=== PATIENT | female | born 1955 | race Caucasian/White ===

== ENCOUNTER 2023-04-09 11:00 | Outpatient (RCR) | payer MEDICARE, BC ==
[~2023-04-09 11:00] MED LIST: EVENITY (2210 MG/2.3 SQ; EXCEDRIN1 TAB PO
== END 2023-04-20 | disposition home or self-care (01) ==
LOC: COL.CR
DX: Z48.812 Encounter for surgical aftercare following surgery on the circulatory system (principal); Z95.2 Presence of prosthetic heart valve

== ENCOUNTER 2023-05-20 09:15 | Outpatient (RCR) | payer MEDICARE, BC | END 2023-05-21 | disposition home or self-care (01) | LOC: WSPT | DX: M54.2 Cervicalgia (principal); M54.9 Dorsalgia, unspecified; G89.29 Other chronic pain ==

== ENCOUNTER → 2023-05-21 | Outpatient (RCR) | payer MEDICARE, BC | END | disposition home or self-care (01) | LOC: COL.CR | DX: Z48.812 Encounter for surgical aftercare following surgery on the circulatory system (principal); Z95.2 Presence of prosthetic heart valve ==

== ENCOUNTER → 2023-06-05 | Outpatient (CLI) | payer SELFPAY | LOC: WSC 11:38 | DX: M54.2 Cervicalgia (principal); M54.9 Dorsalgia, unspecified; G89.29 Other chronic pain ==

== ENCOUNTER 2023-06-18 15:38 | Outpatient (RCR) | payer MEDICARE, BC | END 2023-06-19 | disposition home or self-care (01) | LOC: COL.CR | DX: Z48.812 Encounter for surgical aftercare following surgery on the circulatory system (principal); Z95.2 Presence of prosthetic heart valve ==

== ENCOUNTER → 2023-06-19 | Outpatient (CLI) | payer SELFPAY | LOC: WSC 09:22 | DX: M54.2 Cervicalgia (principal); M54.9 Dorsalgia, unspecified; G89.29 Other chronic pain ==

== ENCOUNTER → 2023-06-19 | Outpatient (RCR) | payer MEDICARE, BC | END | disposition home or self-care (01) | LOC: WSPT | DX: M54.2 Cervicalgia (principal); M54.9 Dorsalgia, unspecified; G89.29 Other chronic pain ==

== ENCOUNTER → 2023-06-26 | Outpatient (CLI) | payer SELFPAY | LOC: WSC 12:40 | DX: M54.2 Cervicalgia (principal); M54.9 Dorsalgia, unspecified; G89.29 Other chronic pain ==

== ENCOUNTER 2023-07-03 10:30 | Outpatient (RCR) | payer MEDICARE, BC | END 2023-07-20 | disposition home or self-care (01) | LOC: WSPT | DX: M54.2 Cervicalgia (principal); M54.9 Dorsalgia, unspecified; G89.29 Other chronic pain ==

== ENCOUNTER 2023-07-21 16:24 | Outpatient (RCR) | payer MEDICARE, BC | END 2023-07-23 11:55 | disposition home or self-care (01) | LOC: COL.CR 16:24 | DX: Z48.812 Encounter for surgical aftercare following surgery on the circulatory system (principal); Z95.4 Presence of other heart-valve replacement ==